=== PATIENT | female | born 1995 | race Caucasian/White ===

== ENCOUNTER 2016-12-31 22:54 | Emergency (ER) | payer OTHER ==
[~2016-12-31] VITALS: Ht 157.5 cm; Wt 97.0 kg
[2016-12-31 22:58] VITALS: BP 133/97; PULSE 98; RESP 16; TEMP 97.8; O2SAT 99
[2017-01-01] MEDS ORDERED: ACETAMINOPHEN 325 MG TAB PO ONE (02:00)
[2017-01-01 02:26] VITALS: BP 132/75; PULSE 88; RESP 16; O2SAT 98
[2017-01-01 02:37] LABS: BLOOD, URINE NEG (NEG); CALCIUM OXALATE CRYSTALS,URINE OCC /hpf; COMMENT (UR) CULT NOT INDICATED; CULTURE IF INDICATED CULT NOT INDICATED; GLUCOSE,URINE NEG (NEG); KETONE, URINE 40 mg/dL (NEG); MUCUS URINE FEW /lpf (OCC); NITRITE,URINE NEG (NEG); PH, URINE 5.5 (5.0-8.5); URINE COLOR YELLOW (YELLW/STRAW)
[2017-01-01 02:45] LABS: ALT (GPT) 25 U/L (10-53); ANION GAP 10 MEQ/L (5-15); AST (GOT) 13 U/L (15-37); BICARBONATE 25.1 MEQ/L (21.0-32.0); BLOOD UREA NITROGEN 6 MG/DL (7-18); CHLORIDE 104 MEQ/L (98-107); GLOMERULAR FILTRATION RATE 99 ML/MIN (>89); POTASSIUM 3.5 MEQ/L (3.5-5.1); SODIUM (NA) 139 MEQ/L (136-145)
[2017-01-01 02:48] LABS: ALKALINE PHOSPHATASE 48 U/L (45-117); TOTAL BILIRUBIN ADULT 0.4 MG/DL (0.2-1.0)
[2017-01-01 02:59] LABS: AUTOMATED NEUTROPHIL # 12.2 TH/MM3 (1.8-7.7); BASOPHIL # 0.1 TH/MM3 (0-0.2); BASOPHIL % 0.5 % (0.0-2.0); EOSINOPHIL % 0.2 % (0.0-4.0); HEMO FLAGS DIFF FINAL; LYMPH % 15.6 % (9.0-44.0); LYMPHOCYTE # 2.4 TH/MM3 (1.0-4.8); MEAN CELL VOLUME 85.2 FL (80.0-100.0); MEAN CORPUSCULAR HEMOGLOBIN 30.3 PG (27.0-34.0); MEAN CORPUSCULAR HGB CONC 35.5 % (32.0-36.0); MONO % 3.2 % (0.0-8.0); NEUT % 80.5 % (16.0-70.0); PLATELET COUNT 269 TH/MM3 (150-450); RED BLOOD COUNT 4.93 MIL/MM3 (4.00-5.30); WHITE BLOOD COUNT 15.2 TH/MM3 (4.0-11.0)
[2017-01-01 03:04] LABS: PROTHROMBIN TIME - PATIENT 10.5 SEC (9.8-11.6)
[2017-01-01 03:16] LABS: APTT (PATIENT) GREATER THAN 153.4 SEC (24.3-30.1)
[2017-01-01 03:24] VITALS: RESP 16
[2017-01-01] MEDS ORDERED: LACT10SO PO (04:35)
--- NOTE | 2017-01-01 04:36 | PD ---
HPI Chief Complaint: GI Complaint Time Seen by Provider: 01:35 Travel History International Travel<30 days: No Contact w/Intl Traveler<30days: No Traveled to known affect area: No History of Present Illness HPI Patient is a 21-year-old female, 14 weeks , who comes in complaining of lower abdominal cramping and constipation. She says she has not had a bowel movement in 4 days. She traveled here from [place] today, and says she has been traveling since 4 in the morning. She says she has been having lower abdominal cramps for most of the day. She does say she has not had much to eat or drink today due to the traveling. She denies any vaginal bleeding. She denies any leg pain or swelling. She denies chest pain or shortness of breath. She does say that she has tried to move her bowels a few times today and only blood has come out. PFSH Past Medical History Immunizations Current: No Tetanus Vaccination: Unknown Influenza Vaccination: No ?: LMP: MID AUGUST Social History Alcohol Use: No Tobacco Use: No Substance Use: No Allergies-Medications (Allergen,Severity, Reaction): Coded Allergies: Imitrex (Verified Allergy, Mild, HIVES, 01/01/17) Reported Meds & Prescriptions Reported Meds & Active Scripts Active Lactulose Liq (Lactulose) 10 Gm/15 Ml Soln 30 Ml PO Q6H PRN 5 Days Review of Systems Except as stated in HPI: all other systems reviewed are Neg General / Constitutional: No: Fever, Chills HENT: No: Headaches, Lightheadedness Cardiovascular: No: Chest Pain or Discomfort Respiratory: No: Shortness of Breath Gastrointestinal: Positive: Abdominal Pain, Constipation, No: Nausea, Vomiting Genitourinary: No: Dysuria, Vaginal Bleeding Skin: No Change in Pigmentation Neurologic: No: Weakness, Dizziness Physical Exam Narrative GENERAL: Awake and alert, in no acute distress. SKIN: Focused skin assessment warm/dry. HEAD: Atraumatic. Normocephalic. EYES: Pupils equal and round. No scleral icterus. ENT: No nasal bleeding or discharge. Mucous membranes pink and moist. NECK: Trachea midline. No JVD. CARDIOVASCULAR: Regular rate and rhythm. No murmur appreciated. RESPIRATORY: No accessory muscle use. Clear to auscultation. Breath sounds equal bilaterally. GASTROINTESTINAL: Abdomen soft, nondistended. mild tenderness across the lower abdomen. : No CMT, no bleeding, os is closed. MUSCULOSKELETAL: No obvious deformities. No clubbing. No cyanosis. No edema. NEUROLOGICAL: Awake and alert. No obvious cranial nerve deficits. Motor grossly within normal limits. Normal speech. PSYCHIATRIC: Appropriate mood and affect; insight and judgment normal. Data Data Last Documented VS Vital Signs Date Time Temp Pulse Resp B/P Pulse Ox O2 Delivery O2 Flow Rate FiO2 01/01/17 03:24 16 01/01/17 02:26 88 132/75 98 Room Air 12/31/16 22:58 97.8 Orders Complete Blood Count With Diff (01/01/17 01:58) Comprehensive Metabolic Panel (01/01/17 01:58) Act Partial Throm Time (Ptt) (01/01/17 01:58) Prothrombin Time / Inr (Pt) (01/01/17 01:58) Type And Screen (01/01/17 01:58) Acetaminophen (Tylenol) (01/01/17 02:00) Urinalysis - C+S If Indicated (01/01/17 01:58) Ed Poc Ultrasound (01/01/17 ) Wet Prep Profile (01/01/17 03:46) Labs Laboratory Tests Test 01/01/17 01/01/17 02:15 03:30 White Blood Count 15.2 TH/MM3 Red Blood Count 4.93 MIL/MM3 Hemoglobin 14.9 GM/DL Hematocrit 42.0 % Mean Corpuscular Volume 85.2 FL Mean Corpuscular Hemoglobin 30.3 PG Mean Corpuscular Hemoglobin 35.5 % Concent Red Cell Distribution Width 14.0 % Platelet Count 269 TH/MM3 Mean Platelet Volume 8.4 FL Neutrophils (%) (Auto) 80.5 % Lymphocytes (%) (Auto) 15.6 % Monocytes (%) (Auto) 3.2 % Eosinophils (%) (Auto) 0.2 % Basophils (%) (Auto) 0.5 % Neutrophils # (Auto) 12.2 TH/MM3 Lymphocytes # (Auto) 2.4 TH/MM3 Monocytes # (Auto) 0.5 TH/MM3 Eosinophils # (Auto) 0.0 TH/MM3 Basophils # (Auto) 0.1 TH/MM3 CBC Comment DIFF FINAL Differential Comment Prothrombin Time 10.5 SEC Prothromb Time International 1.0 RATIO Ratio Activated Partial GREATER THAN Thromboplast Time 153.4 SEC Urine Color YELLOW Urine Turbidity CLOUDY Urine pH 5.5 Urine Specific [place] 1.035 Urine Protein 30 mg/dL Urine Glucose (UA) NEG mg/dL Urine Ketones 40 mg/dL Urine Occult Blood NEG Urine Nitrite NEG Urine Bilirubin NEG Urine Urobilinogen 2.0 MG/DL Urine Leukocyte Esterase NEG Urine RBC 3 /hpf Urine Calcium Oxalate Crystals OCC /hpf Urine Amorphous Sediment FEW Urine Mucus FEW /lpf Microscopic Urinalysis Comment CULT NOT INDICATED Sodium Level 139 MEQ/L Potassium Level 3.5 MEQ/L Chloride Level 104 MEQ/L Carbon Dioxide Level 25.1 MEQ/L Anion Gap 10 MEQ/L Blood Urea Nitrogen 6 MG/DL Creatinine 0.73 MG/DL Estimat Glomerular Filtration 99 ML/MIN Rate Random Glucose 94 MG/DL Calcium Level 9.5 MG/DL Total Bilirubin 0.4 MG/DL Aspartate Amino Transf 13 U/L (AST/SGOT) Alanine Aminotransferase 25 U/L (ALT/SGPT) Alkaline Phosphatase 48 U/L Total Protein 8.0 GM/DL Albumin 4.1 GM/DL Blood Type O POSITIVE Antibody Screen NEGATIVE Blood Bank Comment Clue Cells (Wet Prep) NONE SEEN Vaginal Trichomonas (Wet Prep) NONE SEEN Vaginal Yeast (Wet Prep) NONE SEEN MDM Medical Decision Making Medical Screen Exam Complete: Yes Emergency Medical Condition: Yes Differential Diagnosis UTI versus pyelonephritis versus constipation Narrative Course Patient is a 21-year-old female who comes in complaining of lower abdominal pain , constipation, rectal bleeding. Exam shows brown stool that is occult positive for blood. She does have some lower abdominal tenderness. IV established, labs sent. Labs show a PTT greater than 153. Hemoglobin is 14.9. Patient given IV fluids and Tylenol. She reports this has helped her symptoms. 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 She says she does not require any intervention with the blood in her stool, it is likely due to the constipation. He advises use of a laxative, and that she stay active and well-hydrated. He says that she should call her doctor and follow-up when she returns home. Patient informed of this advice. Advised to drink plenty of fluids. Given a prescription for lactulose. Advised to return to the ED as needed for any worsening symptoms. [facility] Point of Care Internal Pos. & Neg. Controls: Passed Fecal Specimen Occult Blood: Positive Diagnosis Primary Impression: Constipation Qualified Code: K59.00 - Constipation, unspecified constipation type Additional Impression: Dehydration Patient Instructions: Constipation (ED), Dehydration (ED), General Instructions Additional Instructions: Increase your fluid intake. Make sure you stay active to avoid blood clots. Follow up with your doctors. Return to the ED as needed for any worsening symptoms. Scripts Lactulose Liq 10 Gm/15 Ml Soln30 Ml PO Q6H PRN (CONSTIPATION) 5 Days Ref 0 Prov:Christy Ashraf MD 01/01/17 Disposition: DISCHARGE HOME Condition: Stable Christy Ashraf MD Jan 01, 2017 04:36
== END 2017-01-01 04:55 | disposition home or self-care (01) ==
LOC: NEPE 22:54
DX: K59.00 Constipation, unspecified (principal); E86.0 Dehydration; R10.30 Lower abdominal pain, unspecified
CPT/HCPCS: 80053; 81001; 85025; 85610; 85730; 86850; 86900; 86901; 87210; 99284